=== PATIENT | female | born 1955 | race Caucasian/White ===

== ENCOUNTER 2018-03-21 17:21 | Emergency (ER) | payer MEDICAID ==
[~2018-03-21] VITALS: Ht 160 cm; Wt 87.3 kg
[2018-03-21 17:45] VITALS: Ht 160 cm; Wt 87.3 kg
[2018-03-21 19:02] LABS: BASOPHIL % 0.4 % (0-2); CALCIUM 8.9 mg/dL (8.5-10.1); CARBON DIOXIDE 29.4 mmol/L (21-32); CHLORIDE SERUM 105 mmol/L (98-107); CREATININE SERUM 0.6 mg/dL (0.6-1.0); GFR1 > 60 mL/min; GLUCOSE SERUM 101 mg/dL (74-106); PLATELET COUNT 307 x10^3mcL (130-400); POTASSIUM SERUM 3.4 mmol/L (3.5-5.1); RED CELL DISTRIBUTION WIDTH 13.8 % (11.5-14.5); SODIUM SERUM 142 mmol/L (136-145)
[2018-03-21 19:08] LABS: ALBUMIN 3.6 g/dL (3.4-5.0); ALKALINE PHOSPHATASE 67 U/L (46-116); ALT/SGPT 21 U/L (14-59); AMYLASE 57 U/L (25-115); AST/SGOT 18 U/L (15-37); BILIRUBIN TOTAL 0.32 mg/dL (0.20-1.00); CHOLESTEROL 232 mg/dL (<200); HDL CHOLESTEROL 45 mg/dL (40-60); LIPASE 257 IU/L (73-393); MAGNESIUM 2.1 mg/dL (1.8-2.4); TOTAL PROTEIN, SERUM 7.6 g/dL (6.4-8.2)
[2018-03-21 19:25] LABS: UA SPECIFIC GRAVITY 1.015 (1.005-1.035); microscopic required? YES; urine erythrocyte 3+ (NEGATIVE)
[2018-03-21 19:33] LABS: AMPHETAMINE QUAL UR NONE DETECTED (See below)
[2018-03-21 20:20] VITALS: BP 151/99
== END 2018-03-21 20:10 | disposition short-term general hospital (02) ==
LOC: ED 17:21
PROVIDERS: Emergency Medicine
DX: I61.8 Other nontraumatic intracerebral hemorrhage (principal); I10 Essential (primary) hypertension; F17.210 Nicotine dependence, cigarettes, uncomplicated
CPT/HCPCS: 82962; 83880; 99406; J3490; Q0092